=== PATIENT | female | born 1980 | race American Indian/Alaskan Native ===

== ENCOUNTER 2018-09-19 13:57 | Observation (INO) | payer MEDICAID, OTHER ==
[2018-09-19 13:57] VITALS: BMI 26.6
--- NOTE | 2018-09-19 14:50 | ED PDOC ---
Lower Extremity Pain/Injury Time Seen by Provider: 09/19/18 14:15 Chief Complaint (Nursing): Lower Extremity Problem/Injury Chief Complaint (Provider): Lower Extremity Problem/Injury History Per: Patient History/Exam Limitations: no limitations Additional Complaint(s): 38 years old female with history of hypertension presents to ER for evaluation of sudden onset bilateral leg swelling and pain. Patient reports today she developed chest tightness and a feeling of shortness of breath. She states she knows she is but unsure when was LMP, stating it may be in June or July. Patient has no care and is noncompliant with medications. She had one previous that was delivered by . Patient denies nausea, vomiting, vaginal bleeding and reports she is not feeling movement of the fetus at any point in . PMD: None provided Past Medical History Reviewed: Historical Data, Nursing Documentation, Vital Signs Vital Signs: Last Vital Signs Temp 98.8 F 09/19/18 14:04 Pulse 93 H 09/19/18 14:04 Resp 19 09/19/18 14:04 BP 122/68 09/19/18 14:04 Pulse Ox 96 09/19/18 14:04 Primary Care Provider: FAMILY PROVIDER,NO - Medical History PMH: Asthma, Bronchitis, HTN Denies: Chronic Kidney Disease - Surgical History Surgical History: - Family History Family History: States: Unknown Family Hx - Immunization History Hx Tetanus Toxoid Vaccination: No Hx Influenza Vaccination: No Hx Pneumococcal Vaccination: No - Home Medications Home Medications: Ambulatory Orders Medication Instructions Recorded Pnv No.95/Ferrous Fum/Folic AC 1 tab PO DAILY 09/19/18 [ Vitamin Tablet] - Allergies Allergies/Adverse Reactions: Allergies Allergy/AdvReac Type Severity Reaction Status Date / Time beeswax Allergy ITCHING Verified 09/09/18 00:43 Review of Systems ROS Statement: Except As Marked, All Systems Reviewed And Found Negative Cardiovascular: Positive for: Chest Pain (tightness) Respiratory: Positive for: Shortness of Breath Gastrointestinal: Negative for: Nausea, Vomiting Genitourinary Female: Negative for: Vaginal Bleeding Musculoskeletal: Positive for: Leg Pain (and swelling bilaterally) Physical Exam - Reviewed Nursing Documentation Reviewed: Yes Vital Signs Reviewed: Yes - Physical Exam Appears: Positive for: No Acute Distress, Uncomfortable Head Exam: Positive for: ATRAUMATIC, NORMOCEPHALIC Skin: Positive for: Normal Color, Warm, Dry Eye Exam: Positive for: Normal appearance, EOMI, PERRL Neck: Positive for: Normal, Painless ROM, Supple Cardiovascular/Chest: Positive for: Regular Rate, Rhythm. Negative for: Murmur Respiratory: Positive for: Normal Breath Sounds. Negative for: Respiratory Distress Gastrointestinal/Abdominal: Positive for: Soft, Other (Obese and difficult to palpate the fundus but pain appears around the level of umbilicus). Negative for: Tenderness Back: Positive for: Normal Inspection. Negative for: L CVA Tenderness, R CVA Tenderness Extremity: Positive for: Pedal Edema (Bilateral), Swelling (bilateral to legs with shiny skin.), Other (Unable to palpate dorsalis pedis.) Neurological/Psych: Positive for: Awake, Alert, Oriented (x3) - Laboratory Results Result Diagrams: 09/19/18 14:50 09/19/18 14:50 - ECG O2 Sat by Pulse Oximetry: 96 (RA) Pulse Ox Interpretation: Normal Medical Decision Making Medical Decision Making: Time: 1416 MDM: Workup for acute leg swelling that appears chronic -- workup with care. Patient's is estimated to be 4 to 8 weeks --Rule out DVT/PE with report of sudden onset of leg swelling and chest pain --US for --Lab work --Patient on international student advisor --Reevaluate 1750 PROCEDURE: Limited obstetrical ultrasound. HISTORY: +preg, unknown dates COMPARISON: None TECHNIQUE: Standard protocol for this study/examination. FINDINGS: LMP: Unknown Prior examinations from the current : None TECHNIQUE: Real-time 2D imaging, duplex and color Doppler. FINDINGS: Cardiac activity: Present Rate: 160 BPM Measurements: [place] rump length: 3.07 cm Gestational age based on CRL 9 weeks 4 days Gestational age 8 weeks 3 days based on gestational sac measurement 4.03 cm Gestational age derived from LMP: Cannot be ascertained based in the absence of a reliable/ known LMP ANKUR based on biometry: 9 weeks 5 days Gestational concordance Cannot be ascertained based in the absence of a reliable/ known LMP Yolk sac identified Cervix: No Cervical abnormalities: Negative examination for cervical dilatation or effacement. Subchorionic hemorrhage: None UTERUS: 5.8 x 6.6 x 13.3 cm. ADNEXA: Right: Not visible. Left: 2.1 x 2.5 x 3.1 cm. Normal Doppler arterial waveform documented Fluid in the cul-de-sac: None. IMPRESSION: Nine weeks 5 days live intrauterine gestation. 1744 PROCEDURE: Bilateral lower extremity venous duplex Doppler. HISTORY: BL leg swelling COMPARISON: None available. TECHNIQUE: Bilateral common femoral, superficial femoral, popliteal and posterior tibial veins were evaluated. Flow was assessed with color Doppler, compressibility, assessment of phasic flow and augmentation response. FINDINGS: COMMON FEMORAL VEIN: Right CFV: Unremarkable. Left CFV: Unremarkable. SUPERFICIAL FEMORAL VEIN: Right SFV: Unremarkable. Left SFV: Unremarkable. POPLITEAL VEIN: Right Popliteal: Unremarkable. Left Popliteal: Unremarkable. POSTERIOR TIBIAL VEIN: Right PTV: Unremarkable. Left PTV: Unremarkable. OTHER FINDINGS: None. IMPRESSION: No evidence of deep venous thrombosis. 183 Patient is 10 weeks , IUP with confirmed heart rate. DVT test presents no DVT. Labs show, slight elevated in D dimer which is normal for . Patient is also PCP positive. She reports the chest pain is ongoing. Will admit patient for cardiac consult and overnight observation 1844 No consult placed to blind lacer. Spoke to Dr. Hill who states there is no inpatient care as patient with heart rate for 10 weeks Upon discharge, patient advised to start on vitamins and follow [facility] Scribe Attestation: Documented by Rashida Rodriguez and Elizabeth Ren, acting as scribes for Stefany Saravia MD. Provider Scribe Attestation: All medical record entries made by the Scribe were at my direction and personall y dictated by me. I have reviewed the chart and agree that the record accurately reflects my personal performance of the history, physical exam, medical decision making, and the department course for this patient. I have also personally directed, reviewed, and agree with the discharge instructions and disposition. Disposition - Clinical Impression Clinical Impression: Chest pain, , Leg edema - Patient ED Disposition Is Patient to be Admitted: No - Disposition Disposition: Routine/Home Disposition Time: 16:30 Condition: GUARDED
[2018-09-19 15:15] LABS: BASO # 0.1 K/uL (0.0-0.2); BASO % 0.8 % (0.0-2.0); EOS # 0.1 K/uL (0.0-0.7); EOS % 1.7 % (0.0-4.0); HEMOGLOBIN 10.4 g/dL (12.0-16.0); LYMPH # 1.9 K/uL (1.0-4.3); LYMPH % 23.5 % (20.0-40.0); MEAN CELL VOLUME 87.6 fl (81.0-99.0); MEAN CORPUSCULAR HEMOGLOBIN 29.1 pg (27.0-31.0); MEAN CORPUSCULAR HGB CONC 33.2 g/dL (33.0-37.0); MEAN PLATELET VOLUME 8.3 fl (7.2-11.7); MONO # 0.6 K/uL (0.0-0.8); MONO % 7.6 % (0.0-10.0); NEUT # 5.2 K/uL (1.8-7.0); NEUT % 66.4 % (50.0-75.0); NRBC % 0.1 % (0.0-0.0); RBC 3.59 Mil/uL (3.80-5.20); RED CELL DISTRIBUTION WIDTH 13.6 % (11.5-14.5); WHITE BLOOD COUNT 7.9 K/uL (4.8-10.8)
[2018-09-19 15:19] LABS: INR 1.1; PROTHROMBIN TIME 12.3 Seconds (9.8-13.1)
[2018-09-19 15:22] LABS: PARTIAL THROMBOPLASTIN TIME 30.6 Seconds (25.6-37.1)
[2018-09-19 15:26] LABS: ALB/GLOB RATIO 1.2 (1.0-2.1); ALBUMIN 3.7 g/dL (3.5-5.0); ALT/SGPT 30 U/L (9-52); AST/SGOT 28 U/L (14-36); BLOOD UREA NITROGEN 17 mg/dl (7-17); CALCIUM 8.9 mg/dL (8.4-10.2); GFR NON-AFRICAN AMERICAN > 60
[2018-09-19] MEDS ORDERED: Sodium Chloride 0.9% 1,000 ML IV STA (16:30)
[2018-09-19 17:12] LABS: URINE BILIRUBIN NEGATIVE (NEGATIVE); URINE BLOOD NEGATIVE (NEGATIVE); URINE CLARITY CLEAR (Clear); URINE COLOR YELLOW (YELLOW); URINE GLUCOSE (UA) NEG (NEGATIVE); URINE LEUKOCYTE ESTERASE NEG Leu/uL (Negative); URINE PROTEIN NEGATIVE (NEGATIVE); URINE UROBILINOGEN 0.2-1.0 mg/dL (0.2-1.0)
[2018-09-19 17:50] LABS: BARBITURATES, UR NEGATIVE (NEGATIVE); BENZODIAZEPINES, UR NEGATIVE (NEGATIVE); OPIATES, UR NEGATIVE (NEGATIVE); PHENCYCLIDINE, UR POSITIVE (NEGATIVE)
--- NOTE | 2018-09-19 17:53 | US ---
Date of service: 09/19/2018 PROCEDURE: Limited obstetrical ultrasound. HISTORY: +preg, unknown dates COMPARISON: None TECHNIQUE: Standard protocol for this study/examination. FINDINGS: LMP: Unknown Prior examinations from the current : None TECHNIQUE: Real-time 2D imaging, duplex and color Doppler. FINDINGS: Cardiac activity: Present Rate: 160 BPM Measurements: [place] rump length: 3.07 cm Gestational age based on CRL 9 weeks 4 days Gestational age 8 weeks 3 days based on gestational sac measurement 4.03 cm Gestational age derived from LMP: Cannot be ascertained based in the absence of a reliable/ known LMP ANKUR based on biometry: 9 weeks 5 days Gestational concordance Cannot be ascertained based in the absence of a reliable/ known LMP Yolk sac identified Cervix: No Cervical abnormalities: Negative examination for cervical dilatation or effacement. Subchorionic hemorrhage: None UTERUS: 5.8 x 6.6 x 13.3 cm. ADNEXA: Right: Not visible. Left: 2.1 x 2.5 x 3.1 cm. Normal Doppler arterial waveform documented Fluid in the cul-de-sac: None. IMPRESSION: Nine weeks 5 days live intrauterine gestation.
--- NOTE | 2018-09-19 18:10 | US ---
Date of service: 09/19/2018 PROCEDURE: Bilateral lower extremity venous duplex Doppler. HISTORY: BL leg swelling COMPARISON: None available. TECHNIQUE: Bilateral common femoral, superficial femoral, popliteal and posterior tibial veins were evaluated. Flow was assessed with color Doppler, compressibility, assessment of phasic flow and augmentation response. FINDINGS: COMMON FEMORAL VEIN: Right CFV: Unremarkable. Left CFV: Unremarkable. SUPERFICIAL FEMORAL VEIN: Right SFV: Unremarkable. Left SFV: Unremarkable. POPLITEAL VEIN: Right Popliteal: Unremarkable. Left Popliteal: Unremarkable. POSTERIOR TIBIAL VEIN: Right PTV: Unremarkable. Left PTV: Unremarkable. OTHER FINDINGS: None. IMPRESSION: No evidence of deep venous thrombosis.
[2018-09-20] MEDS ORDERED: [UNRECOGNIZED DRUG - REMARK] PO SCH (09:00)
[2018-09-20] MEDS: Prenatal Multivit/Folic Acid/Iron Tab PO SCH (10:18)
--- NOTE | 2018-09-20 15:58 | CP.PCM.CON ---
History of Present Illness - History of Present Illness History of Present Illness: WENT TO ASSESS PT FOR CP. PT WAS ASLEEP IN BED. IN ORDER TO WAKE PT I TAPPED PTS CALF. PT OPENED EYES AND COMPLAINED ABOUT BEING DISTURBED. I INTRODUCED MYSELF THE MOTOR TEACHER HERE TO SEE HER FOR CP. PT STATED SHE WANTS A "EVIE LE DOCTOR AND ONE WHO DOESN'T TAP HER LEG AND WAKE HER." I TOLD PT I WOULD RELAY THE MESSAGE TO THE STAFF AND HER PRIMARY CARE TEAM. I DID ALERT DR GRIMES AND PTS RN. I WILL RECUSE MYSELF FROM THE CASE AT THIS POINT. THANK YOU. Past Patient History - Infectious Disease Hx of Infectious Diseases: None - Tetanus Immunizations Tetanus Immunization: Unknown - Past Medical History & Family History Past Medical History?: Yes - Past Social History Smoking Status: Unknown If Ever Smoked - CARDIAC Hx Cardiac Disorders: Yes - PULMONARY Hx Respiratory Disorders: Yes - NEUROLOGICAL Hx Neurological Disorder: No - HEENT Hx HEENT Problems: No - RENAL Hx Chronic Kidney Disease: No - ENDOCRINE/METABOLIC Hx Endocrine Disorders: No - HEMATOLOGICAL/ONCOLOGICAL Hx Blood Disorders: No - INTEGUMENTARY Hx Dermatological Problems: No - MUSCULOSKELETAL/RHEUMATOLOGICAL Hx Musculoskeletal Disorders: No Hx Falls: No - GASTROINTESTINAL Hx Gastrointestinal Disorders: No - GENITOURINARY/GYNECOLOGICAL Hx Genitourinary Disorders: No - PSYCHIATRIC Hx Psychophysiologic Disorder: No Hx Substance Use: Yes (MARIJUANA) Other/Comment: urine tox positive for pcp - SURGICAL HISTORY Hx Surgeries: Yes Hx Section: Yes (X2) - ANESTHESIA Hx Anesthesia: Yes Hx Anesthesia Reactions: No Hx Malignant Hyperthermia: No Meds Allergies/Adverse Reactions: Allergies Allergy/AdvReac Type Severity Reaction Status Date / Time beeswax Allergy ITCHING Verified 09/09/18 00:43 - Medications Medications: Current Medications Multivit/Folic Acid/Iron () 1 tab PO DAILY KSENIA Last Admin: 09/20/18 10:18 Dose: 1 tab Results - Vital Signs Recent Vital Signs: Last Vital Signs Temp 99.1 F 09/20/18 15:32 Pulse 75 09/20/18 15:32 Resp 20 09/20/18 15:32 BP 115/70 09/20/18 15:32 Pulse Ox 98 09/20/18 15:32 - Labs Result Diagrams: 09/19/18 14:50 09/19/18 14:50 Labs: Laboratory Results - last 24 hr 09/19/18 09/19/18 09/19/18 14:50 14:50 15:25 D-Dimer, Quantitative Beta HCG, Quant 54560.00 Urine Color Urine Clarity Urine pH Ur Specific [place] Urine Protein Urine Glucose (UA) Urine Ketones Urine Blood Urine Nitrate Urine Bilirubin Urine Urobilinogen Ur Leukocyte Esterase Urine RBC (Auto) Urine Microscopic WBC Urine Opiates Screen Urine Methadone Screen Ur Barbiturates Screen Ur Phencyclidine Scrn Ur Amphetamines Screen U Benzodiazepines Scrn U Oth Cocaine Metabols U Cannabinoids Screen Blood Type O POSITIVE Blood Type Confirm O POSITIVE Antibody Screen Negative 09/19/18 09/19/18 09/19/18 16:41 16:50 16:50 D-Dimer, Quantitative 298 H Beta HCG, Quant Urine Color Yellow Urine Clarity Clear Urine pH 7.0 Ur Specific [place] 1.025 Urine Protein Negative Urine Glucose (UA) Neg Urine Ketones Negative Urine Blood Negative Urine Nitrate Negative Urine Bilirubin Negative Urine Urobilinogen 0.2-1.0 Ur Leukocyte Esterase Neg Urine RBC (Auto) 3 Urine Microscopic WBC 3 Urine Opiates Screen Negative Urine Methadone Screen Negative Ur Barbiturates Screen Negative Ur Phencyclidine Scrn Positive H Ur Amphetamines Screen Negative U Benzodiazepines Scrn Negative U Oth Cocaine Metabols Negative U Cannabinoids Screen Negative Blood Type Blood Type Confirm Antibody Screen
[2018-09-20 19:36] LABS: HEMOGLOBIN 11.2 g/dL (12.0-16.0); MEAN CELL VOLUME 87.6 fl (81.0-99.0); MEAN CORPUSCULAR HEMOGLOBIN 29.4 pg (27.0-31.0); MEAN CORPUSCULAR HGB CONC 33.5 g/dL (33.0-37.0); RBC 3.82 Mil/uL (3.80-5.20); RED CELL DISTRIBUTION WIDTH 13.4 % (11.5-14.5); WHITE BLOOD COUNT 7.9 K/uL (4.8-10.8)
[2018-09-20 19:57] LABS: ALB/GLOB RATIO 1.2 (1.0-2.1); ALBUMIN 3.4 g/dL (3.5-5.0); ALT/SGPT 29 U/L (9-52); AST/SGOT 22 U/L (14-36); BLOOD UREA NITROGEN 16 mg/dl (7-17); CALCIUM 8.9 mg/dL (8.4-10.2); GFR NON-AFRICAN AMERICAN > 60
--- NOTE | 2018-09-21 01:42 | CP.PCM.HP ---
History of Present Illness - History of Present Illness History of Present Illness: CC: Sudden BLE swelling and pain. HPI: 38 y/o female presented to the ED with sudden swelling and pain of BLE. As per the pt, she developed mild chest pain, then abrupt pain and swelling of the BLE. U/S of the BLE was negative for DVT. Of note, the patient tested positive for PCP in the urine drug tox. She also reports being homeless from time to time. OB-AGRICULTURAL RESEARCHER and cardiology were consulted. PMH: Asthma, Bronchitis, HTN. PSH: x2. Allergies: Beeswax. Review of Systems: Reviewed and no additional remarkable complaints except BLE pain. Objective Appears: Agitated, Non-toxic, No Acute Distress. Head Exam: NORMAL INSPECTION, normocephalic. Eye Exam: Normal eye inspection, EOMI, PERRLA. Respiratory Exam: NORMAL BREATHING PATTERN, breath sounds CTA. Cardiovascular Exam: +S1, +S2. RRR. GI & Abdominal Exam: Soft, non-tender, non-distended. Neurological Exam: Alert, awake, and oriented x3. Psychiatric exam: Agitated, easily irritable. Skin exam: Normal color, warm and dry. Trace edema to BLE. Assessment/Impression/Plan: 1.) Chest pain/Venous Stasis -Chest pain has resolved. -Urine drug tox tested positive for PCP. -OB-AGRICULTURAL RESEARCHER and cardiology consult input appreciated. -D-Dimer elevated, however this is an unremarkable/expected finding in . -ECHO to be done. -Continue current treatment. Present on Admission - Present on Admission Any Indicators Present on Admission: No Past Patient History - Infectious Disease Hx of Infectious Diseases: None - Tetanus Immunizations Tetanus Immunization: Unknown - Past Medical History & Family History Past Medical History?: Yes - Past Social History Smoking Status: Unknown If Ever Smoked - CARDIAC Hx Cardiac Disorders: Yes - PULMONARY Hx Respiratory Disorders: Yes - NEUROLOGICAL Hx Neurological Disorder: No - HEENT Hx HEENT Problems: No - RENAL Hx Chronic Kidney Disease: No - ENDOCRINE/METABOLIC Hx Endocrine Disorders: No - HEMATOLOGICAL/ONCOLOGICAL Hx Blood Disorders: No - INTEGUMENTARY Hx Dermatological Problems: No - MUSCULOSKELETAL/RHEUMATOLOGICAL Hx Musculoskeletal Disorders: No Hx Falls: No - GASTROINTESTINAL Hx Gastrointestinal Disorders: No - GENITOURINARY/GYNECOLOGICAL Hx Genitourinary Disorders: No - PSYCHIATRIC Hx Psychophysiologic Disorder: No Hx Substance Use: Yes (MARIJUANA) Other/Comment: urine tox positive for pcp - SURGICAL HISTORY Hx Surgeries: Yes Hx Section: Yes (X2) - ANESTHESIA Hx Anesthesia: Yes Hx Anesthesia Reactions: No Hx Malignant Hyperthermia: No Meds Allergies/Adverse Reactions: Allergies Allergy/AdvReac Type Severity Reaction Status Date / Time beeswax Allergy ITCHING Verified 09/09/18 00:43 Results - Vital Signs Recent Vital Signs: Last Vital Signs Temp 97.3 F L 09/21/18 00:10 Pulse 80 09/21/18 00:10 Resp 18 09/21/18 00:10 BP 115/68 09/21/18 00:10 Pulse Ox 100 09/21/18 00:10 - Labs Result Diagrams: 09/20/18 19:08 09/20/18 19:08 Labs: Laboratory Results - last 24 hr 09/20/18 09/20/18 19:08 19:08 WBC 7.9 RBC 3.82 Hgb 11.2 L Hct 33.4 L MCV 87.6 MCH 29.4 MCHC 33.5 RDW 13.4 Plt Count 300 Sodium 136 Potassium 3.9 Chloride 105 Carbon Dioxide 21 L Anion Gap 14 BUN 16 Creatinine 0.6 L Est GFR ( Amer) > 60 Est GFR (Non-Af Amer) > 60 Random Glucose 93 Calcium 8.9 Phosphorus 4.4 Magnesium 1.7 Total Bilirubin 0.2 AST 22 ALT 29 Alkaline Phosphatase 56 Total Protein 6.4 Albumin 3.4 L Globulin 3.0 Albumin/Globulin Ratio 1.2 Assessment & Plan (1) Leg edema Status: Acute
[2018-09-21 08:40] VITALS: RESP 20
[2018-09-21] MEDS: Prenatal Multivit/Folic Acid/Iron Tab PO SCH (08:53)
--- NOTE | 2018-09-21 11:31 | CP.PCM.PN ---
Objective - Vital Signs/Intake and Output Vital Signs (last 24 hours): Temp Pulse Resp BP Pulse Ox 98.8 F 91 H 20 103/64 98 09/21/18 08:39 09/21/18 08:39 09/21/18 08:39 09/21/18 08:39 09/21/18 08:39 - Medications Medications: Current Medications Multivit/Folic Acid/Iron () 1 tab PO DAILY KSENIA Last Admin: 09/21/18 08:53 Dose: 1 tab - Labs Labs: 09/20/18 19:08 09/20/18 19:08 PT 12.3 Seconds (9.8-13.1) 09/19/18 14:50 INR 1.1 09/19/18 14:50 APTT 30.6 Seconds (25.6-37.1) 09/19/18 14:50 Assessment and Plan - Assessment and Plan (Free Text) Assessment: Patient seen and examined at bedside. Found asleep, but easily arousable Vital signs stable. HR 78SR, bp 103/64 Chest pain free. denies dyspnea, nausea vomiting diarrhea. Cardiac enzyme negative, patient refused repeat troponins and ekg. Refused to be seen by Dr Cowan (as she is requesting a female supervisor pastry) Made aware there is no female supervisor pastry in staff- can follow up with supervisor pastry outpatient. [facility] 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 Referred to for drug abuse with , outside agency [facility] has seen patient, and will follow patient in the community. Continue vitamins
[2018-09-21 12:40] VITALS: BP 101/60; PULSE 82; TEMP 98; O2SAT 99
== END 2018-09-21 16:00 | disposition home or self-care (01) ==
LOC: H.ER 13:57 → H.ERHOLD 16:30 → H.TEL 09-20
PROVIDERS: ADMIT Family Medicine; ATTEND Family Medicine
DX: O12.01 Gestational edema, first trimester (principal); R07.89 Other chest pain; O16.1 Unspecified maternal hypertension, first trimester; O99.511 Diseases of the respiratory system complicating pregnancy, first trimester; J45.909 Unspecified asthma, uncomplicated; Z3A.10 10 weeks gestation of pregnancy; Z59.0 Homelessness
CPT/HCPCS: 36415; 76815; 80053; 80324; 80345; 80346; 80349; 80353; 80358; 80361; 81003; 81025; 83735; 83992; 84100; 84484; 84702; 85025; 85027; 85378; 85610; 85730; 86850; 86900; 93970; 99284; G0378; J7030